=== PATIENT | male | born 1950 | race Caucasian/White ===

== ENCOUNTER → 2016-07-17 | Outpatient (CLI) | payer BC, OTHER | LOC: GMAB 12:13 | PROVIDERS: ATTEND Family Medicine | DX: Z00.01 Encounter for general adult medical examination with abnormal findings (principal) ==

== ENCOUNTER 2016-08-07 08:00 | Day surgery (SDC) | payer OTHER ==
--- NOTE | 2016-08-04 11:28 | RAD ---
EXAM DESCRIPTION: XR CHEST 2 VIEWS CLINICAL HISTORY: Preoperative respiratory evaluation. Z01.811 COMPARISON: None Available. TECHNIQUE: Two-views of the chest. FINDINGS: Heart size is normal. Lungs are clear. No acute osseous injury. IMPRESSION: No acute chest process Electronically signed by: Mitch Pollard MD 08/04/2016 11:26
[~2016-08-07 08:00] MED LIST: BUPIVACAINE 0.25% W/EPI 50 ML VIAL INJ ONE; LACTATED RINGERS 1,000 ML ONE; LIDOCAINE 1% 10 ML VIAL INJ ONE; LIDOCAINE 2 % GEL 5 ML TUBE TOP ONE; METOCLOPRAMIDE HCL INJ 10 MG/2 ML VIAL ONE; PROPOFOL 200 MG/20 ML VIAL IV ONE; SODIUM CHL 0.9% 100ML MINI-BAG 100 ML IVPB ONE; ceFAZolin SODIUM 1 GM VIAL ONE; fentaNYL CITRATE INJ 50 MCG/ML AMP ONE
--- NOTE | 2016-08-07 11:58 | OP ---
DATE OF PROCEDURE: 08/07/16 PREOPERATIVE DIAGNOSIS: 1. Incarcerated umbilical hernia and left inguinal hernia, reducible. POSTOPERATIVE DIAGNOSIS: 1. Incarcerated umbilical hernia and left inguinal hernia, reducible. PROCEDURE: 1. Repair of incarcerated umbilical hernia and left inguinal hernia. SURGEON: Kal Donaldson MD. DECAL CUTTER: None. ANESTHESIA: Local infiltration of 0.25% Marcaine with epinephrine and general endotracheal anesthesia. INDICATION: The patient is a 66-year-old male who has had a hernia in the left groin, noticeable for sometime and a mass at his umbilicus. They have become somewhat larger and slightly more symptomatic. After the discussion of the risks, benefits and alternatives, the patient was brought to the Surgical Suite today for repair of both hernias. FINDINGS: The umbilical hernia was incarcerated with omentum. The inguinal hernia was a large direct hernia with no indirect component. There was a small cord lipoma. No other pathology was identified. PROCEDURE: After adequate general endotracheal anesthesia was obtained, the patient was prepped and draped in the usual sterile manner. At this point, the infraumbilical was infiltrated with local anesthesia and a curvilinear incision was fashioned below the umbilicus, first with a sharp knife and then dissection was carried down through the skin and subcutaneous tissue using electrocautery and blunt dissection. When the midline fascia was identified, dissection was carried superiorly until the hernia was identified. It was dissected free circumferentially using electrocautery and blunt dissection. It was then incised at its neck at the base on the inferior aspect and a hemostat was used to dissect the omentum out. It was then held traction while the adhesions were lysed using electrocautery. It was then reduced below the floor of the canal and the back wall of the hernia was transected using electrocautery. When this was done, the subcutaneous fascia was dissected free circumferentially around the defect using electrocautery and blunt dissection. Two nicks were made in the fascia and these were closed with interrupted [id number] sutures of 2- 0 Prolene. When this was done, again, the omentum was reduced below the fascia and the fascia was reapproximated with interrupted [id number] sutures of # 1 PDS. When these were tightened and tied, the wound was irrigated with saline. Hemostasis was noted to be adequate. At this point, an oval shaped, 10 by 5 cm oval mesh was placed over the repairs and sutured in place with interrupted 2-0 Prolene and 2-0 Vicryl sutures. When this was done, again, the wound was irrigated with saline. The umbilicus was then sutured to the fascia and the mesh with a single [id number] suture of 2-0 Prolene. When this was done, again, the wound was irrigated with saline. Hemostasis was noted to be adequate. Subcutaneous tissues were reapproximated with interrupted 2-0 and 3-0 Vicryl in layers. The skin edges were approximated with a skin stapler. A towel was placed over the field, then the left lower quadrant was infiltrated with local anesthesia. An oblique incision was then fashioned using sharp knife. Dissection was carried down through the skin and subcutaneous tissue again using electrocautery to the external oblique fascia. Self-retaining retractor was placed at this level. The external oblique fascia was then opened in the direction of the fibers laterally and medially through the external inguinal ring. When this was done, the external oblique fascia was dissected free from the floor of the canal and self-retaining retractor was placed at this level. The cord was then dissected free from the floor of the canal and then the direct hernia sac was dissected free from the cord. A half inch Dulce Maria drain was placed around the cord for traction. The cord was then explored with only the lipoma identified. It was dissected free using blunt dissection, electrocautery, clamps and ligatures of 3-0 Vicryl. When this was done, the direct hernia was incised at the level of the floor of the canal. It was reduced below the floor of the canal using gentle blunt dissection. The edges of the defect were dissected free from the tissues below, then a Surgimesh patch was introduced under the floor of the canal and sutured circumferentially with interrupted 2-0 Vicryl sutures. Again, the wound was irrigated with saline. At this point, a Surgimesh patch was sutured around the cord in the usual manner with interrupted 2-0 Vicryl sutures. When this was done, again, the wound was irrigated with saline. Hemostasis was noted to be adequate. At this point, the cord was placed back in the canal and the external oblique fascia was closed with a running 3-0 Vicryl suture. When this was done, the cord and subcutaneous tissues above, below and lateral to the incision were infiltrated with local anesthesia as was the skin at the two lateral aspects of the infraumbilical incision. Marianna's fascia and the inguinal incision were then closed with interrupted 3-0 Chromic sutures and the skin edges were approximated with a skins stapler. Sterile dressings were applied. The testicle was checked for position in the scrotum and abdominal binder was applied. The patient was awakened and taken to the Recovery Room in good and stable condition. Estimated blood loss was approximately 75 mL from both procedures. #[id number] [facility]
[2016-08-07] MEDS ORDERED: HYDROcodone 5MG/APAP 325MG 1 EA TAB ONE (13:02)
[2016-08-07] MEDS ORDERED: LACTATED RINGERS 1,000 ML ONE (14:22)
[2016-08-07 15:29] VITALS: BP 157/75; TEMP 99.5; O2SAT 100
== END 2016-08-07 15:20 | disposition home or self-care (01) ==
LOC: AMB 08:00
PROVIDERS: ATTEND Surgery
DX: K42.0 Umbilical hernia with obstruction, without gangrene (principal); E78.5 Hyperlipidemia, unspecified; R00.1 Bradycardia, unspecified; Z79.899 Other long term (current) drug therapy
CPT/HCPCS: 00830; 36415; 49587; 71020; 80048; 81001; 85025; C1781; J0690; J2765; J3010; J3490; J7050; J7120

== ENCOUNTER → 2018-04-27 | Outpatient (CLI) | payer OTHER | LOC: GMAE 13:26 | PROVIDERS: ATTEND Family Medicine | DX: N41.0 Acute prostatitis (principal) ==

== ENCOUNTER → 2019-07-13 | Outpatient (CLI) | payer OTHER | LOC: GMAE 10:21 | PROVIDERS: ATTEND Family Medicine | DX: Z00.00 Encounter for general adult medical examination without abnormal findings (principal) ==